=== PATIENT | female | born 1980 | race Asian ===

== ENCOUNTER 2018-11-14 12:59 | Emergency (ER) | payer OTHER ==
[~2018-11-14] VITALS: Wt 50.4 kg
[~2018-11-14 12:59] MED LIST: PREN1TAB49 PO
[2018-11-14 13:01] VITALS: BP 113/84; PULSE 100; RESP 20
[2018-11-14] MEDS ORDERED: IPRATROPIUM (NEB) 0.5 MG/2.5 ML AMP INH STA (13:46)
[2018-11-14] MEDS ORDERED: predniSONE 20 MG TAB PO STA (13:46)
[2018-11-14] MEDS ORDERED: ALBUTEROL 0.5% (NEB) 2.5 MG/0.5 ML AMP INH STA (13:46)
[2018-11-14] MEDS ORDERED: IBUPROFEN 600 MG TAB PO ONE (14:00)
[2018-11-14] MEDS ORDERED: ALBU18HF INHALATION (14:57)
[2018-11-14] MEDS ORDERED: MED4DP PO (14:57)
[2018-11-14] MEDS ORDERED: BENZ200C68 PO (14:57)
--- NOTE | 2018-11-14 15:17 | ERD ---
ER Documentation Chief Complaint Chief Complaint FEVER AND COUGHING AND CONGESTION FOR 3 DAYS. INTERMITTENT FEVERS. HPI 38-year-old female with no significant past medical history presenting to the emergency department complaining of intermittent sore throat and cough for the past 3 days. She states she does have history of pneumonia in the past and she is worried she may have it again. Her sore throat is worse with swallowing. She has had tactile fevers. She tried [id number] medication with some relief. She does report sick contacts with similar symptoms. She has had some episodes of shortness of breath while coughing. Symptoms are overall moderate in severity. ROS All systems reviewed and are negative except as per history of present illness. Medications Home Meds Active Scripts Benzonatate* (Benzonatate*) 200 Mg Capsule, 200 MG PO TID PRN for COUGH, #15 CAP Prov:KURT NUNO PA-C 11/14/18 Methylprednisolone* (Medrol* DOSE PACK) 4 Mg/Dose-Pack Tab.ds.pk, 4 MG PO . DIRECTED, #1 PACKET Prov:KURT NUNO PA-C 11/14/18 Albuterol Sulfate* (Ventolin HFA*) 18 Gm Hfa.aer.ad, 2 PUFF INHALATION Q4H, #1 INHALER Prov:KURT NUNO PA-C 11/14/18 Reported Medications Vits W-Ca,Fe,Fa(<1MG) () 1 Tab Tablet, 1 TAB PO DAILY 06/30/12 Allergies Allergies: Coded Allergies: No Known Allergy (Unverified , 11/14/18) PMhx/Soc Medical and Surgical Hx: pt denies Medical Hx History of Surgery: Yes ( X2, APPENDECTOMY) Anesthesia Reaction: No Hx Neurological Disorder: No Hx Respiratory Disorders: No Hx Cardiac Disorders: No Hx Psychiatric Problems: No Hx Miscellaneous Medical Probl: No Hx Alcohol Use: No Hx Substance Use: No Hx Tobacco Use: No Smoking Status: Never smoker FmHx Family History: No diabetes Physical Exam Vitals Vital Signs Date Temp Pulse Resp B/P (MAP) Pulse Ox O2 O2 Flow FiO2 Time Delivery Rate 11/14/18 97 Room Air 15:11 11/14/18 100 20 98 21 14:06 11/14/18 99.9 100 20 113/84 98 13:01 (94) Physical Exam Const: No acute distress Head: Atraumatic Eyes: Normal Conjunctiva ENT: Normal External Ears, Nose and Mouth. Posterior pharynx is clear. Airway is patent. There is no tonsillar enlargement or exudates noted. Uvula is midline. Neck: Full range of motion. No meningismus. Resp: Bilateral inspiratory rhonchi noted to upper lung [place]. No crackles. No respiratory distress. Cardio: Regular rate and rhythm, no murmurs Skin: No petechiae or rashes Ext: No cyanosis, or edema Neur: Awake and alert Psych: Normal Mood and Affect Results 24 hrs Current Medications Medications Dose Sig/Cody Start Time Status Last (Trade) Ordered Route PRN Stop Time Admin Dose Reason Admin Albuterol 10 mg ONCE STAT 11/14/18 DC 11/14/18 (Proventil INH 13:46 14:06 0.5% (Neb)) 11/14/18 13:48 Ipratropium 1 mg ONCE STAT 11/14/18 DC 11/14/18 [place] [facility] 13:46 14:06 (Atrovent 11/14/18 13:48 0.02% (Neb)) Prednisone 60 mg ONCE STAT 11/14/18 DC 11/14/18 (Prednisone) PO 13:46 14:10 11/14/18 13:48 Ibuprofen 600 mg ONCE ONCE 11/14/18 DC 11/14/18 (Motrin) PO 14:00 14:10 11/14/18 14:01 Procedures/MDM 38-year-old female presenting to the emergency department with signs and symptoms most consistent with acute upper respiratory infection, likely viral in etiology. Chest x-ray is negative for any sign of pneumonia Or other abnormalities per radiology. Rapid strep test was negative. Patient was administered albuterol/ipratropium breathing treatment as well as prednisone with significant improvement of her shortness of breath. She is otherwise stable for discharge with outpatient management. She will be given pre scriptions for benzonatate, Medrol Dosepak, albuterol. Patient's respiratory status has stabilized while in the department and is appropriate for outpatient work up. Exam and work up not consistent w/ impending respiratory failure or cardiovascular collapse. No evidence of life-threatening pathology at time of discharge. Pt/family in agreement with discharge plan/diagnosis. Pt/family advised to return immediately with any new or worsening symptoms. Follow-up with primary care physician within the next 1-2 days. Departure Diagnosis: Primary Impression: URI (upper respiratory infection) Condition: Fair Patient Instructions: Preventing Common Respiratory Infections Additional Instructions: Call your primary care doctor TOMORROW for an appointment during the next 1-2 days.See the doctor sooner or return here if your condition worsens before your appointment time. KURT NUNO PA-C November 14, 2018 15:17
== END 2018-11-14 15:11 | disposition home or self-care (01) ==
LOC: FTE 12:59
DX: J06.9 Acute upper respiratory infection, unspecified (principal)
CPT/HCPCS: 71045; 87880; 94644; J7512; Z7502; Z7610